=== PATIENT | female | born 1965 | race Caucasian/White ===

== ENCOUNTER 2022-05-13 14:27 | Emergency (ER) | payer BC ==
[2022-05-13 14:44] VITALS: BP 116/66; PULSE 100; O2SAT 95
[2022-05-13] MEDS ORDERED: Sodium Chloride 0.9% 1000 ML 1,000 ML IV STA (15:01)
[2022-05-13] MEDS ORDERED: Sodium Chloride 0.9% 1000 ML 1,000 ML ONE (15:19)
[2022-05-13 15:28] LABS: Absolute Neutrophil Ct (ANC) 5.35 x10^3/uL (1.4-6.9); Basophil (Absolute #) 0.06 x10^3/uL (0-0.4); Eosinophil % 6.9 % (0.00-5.0); Eosinophil (Absolute #) 0.66 x10^3/uL (0-0.5); Hemoglobin 14.2 g/dL (12.0-16.0); Lymphocyte (Absolute #) 2.65 x10^3/uL (1.0-4.6); Lymphocytes % 27.7 % (24.0-44.0); Mean Cell Volume 97.1 fL (78-100); Mean Corpuscular Hemoglobin 31.3 pg (26-32); Mean Corpuscular Hgb Concent. 32.3 g/dL (32-36); Mean Platelet Volume 9.7 fL (7.5-11.0); Monocyte (Absolute #) 0.81 x10^3/uL (0.0-1.3); Monocytes % 8.5 % (0.0-12.0); Neutrophil % 55.8 % (36.0-66.0); Platelet Count 295 x10^3/uL (150-450); Red Blood Count 4.53 x10^6/uL (4.1-5.4); White Blood Count 9.6 x10^3/uL (4.0-10.5)
[2022-05-13 15:29] LABS: Appearance CLEAR (CLEAR); Bilirubin NEGATIVE (NEGATIVE); Glucose NEGATIVE (NEGATIVE); Ketones NEGATIVE (NEGATIVE); Mucus SLIGHT /HPF (NEGATIVE); Ph 5.5 (5-6); Protein,Urine Dip NEGATIVE (Negative); RBC NEGATIVE Ery/ul (0-5); Urobilinogen 0.2 mg/dL (0-1); WBC 0-2 /HPF (0-5)
[2022-05-13 15:30] LABS: Dipstick done @ ? MAIN LAB; Nitrite NEGATIVE (NEGATIVE); Urine Cultured Indicated? NO
[2022-05-13 15:33] LABS: ALBUMIN 5.2 g/dL (3.5-5.0); ALKALINE PHOSPHATASE 67 U/L (38-126); ANION GAP 18.7 MEQ/L (5-15); BLOOD UREA NITROGEN 15 mg/dL (7-17); CHLORIDE 99 mmol/L (98-107); Calcium 10.3 mg/dL (8.4-10.2); Carbon Dioxide 26 mmol/L (22-30); Creatinine 1 0.99 mg/dL (0.52-1.04); EST GLOMERULAR FILTRATION RATE > 60.0 ML/MIN; Glucose 98 mg/dL (74-106); LIPASE 55 U/L (23-300); Potassium 4.7 mmol/L (3.5-5.1); SGOT/AST 38 U/L (14-36); SGPT/ALT 31 U/L (0-35); SODIUM 139 mmol/L (137-145)
--- NOTE | 2022-05-13 16:38 | XRAY ---
Exam: CT of the abdomen and pelvis without IV contrast from 05/13/2022. CTDI: 6.29 mGy Comparison: [None.] Indication: 56-year-old female with history of vomiting and diarrhea/constipation. The patient has a personal history of prior surgery for an umbilical hernia. Technique: Non-IV contrast axial images were obtained through the abdomen and pelvis. No oral contrast was given. Reconstructed coronal and sagittal images were created and reviewed. Findings: The lung bases reveal minimal posterior dependent compression atelectasis within the posterior lung sulci bilaterally. No other findings of concern are seen at the lung bases. Assessment of the solid organs is limited on a non-IV contrast study only. Diffuse fatty infiltration within the liver is seen consistent with hepatic steatosis. Region of interest measurement over the right hepatic lobe measures +28.3 Hounsfield units, whereas the region of interest measurement over the spleen measures +50.2 Hounsfield units. I see no focal hepatic mass or intrahepatic biliary duct distention. The gallbladder is distended and reveals no intraluminal dense calcifications. The spleen is of normal size and reveals no mass. The pancreas and adrenal glands appear unremarkable. The kidneys are of average size and reveal no calculi or hydronephrosis. No obvious ureteral distention or ureterolith is seen. No definite solid renal mass is seen. Atherosclerotic vascular calcification is seen within the abdominal aorta and proximal iliac arteries. I see a mild eccentric focal bulge of the abdominal aorta toward the left on coronal images #73 through #78. However, this only measures a maximum of 2.3 cm in width on coronal image #74 and axial image #41. The abdominal aorta just proximal this measures about 1.7 cm in diameter. Therefore, technically, this does not represent an aneurysm as of yet. Correlate clinically and consider a follow-up CT exam in one year. Blood pressure should be well-controlled. No abnormal retroperitoneal lymphadenopathy is seen. I see no ventral abdominal wall hernia. There is no free intraperitoneal air. There is some fluid-filled small bowel and scattered air-fluid levels seen within nondilated colon which could be due to the patient's diarrheal state. Colonic diverticulosis without diverticulitis is seen within the left hemicolon. No findings of acute appendicitis are seen. The uterus is anteflexed. The ovaries appear grossly unremarkable. The urinary bladder is distended and appears unremarkable. No abnormal pelvic soft tissue mass, pelvic lymphadenopathy, or free intraperitoneal fluid is seen. The skeleton reveals no acute fracture or aggressive bone lesion. Marked degenerative disc disease is seen at L5-S1. Advanced degenerative facet joint arthropathy is seen bilaterally at L3-L4 through L5-S1 bilaterally. Impression: 1. Colonic diverticulosis without evidence of acute diverticulitis is seen within the left hemicolon. 2. I also note fluid within both distal small bowel and colon consistent with a diarrheal state. No mechanical bowel obstruction or appendicitis is seen. 3. Hepatic steatosis. 4. There appears to be a mild left lateral bulge of the infrarenal abdominal aorta, although this bulge only measures a maximum of 2.3 cm in width. See above. Blood pressure should be well-controlled. A follow-up CT of the abdomen in 1 year is recommended for surveillance. 5. No other acute process is seen within the abdomen or pelvis.
--- NOTE | 2022-05-13 17:01 | ERPHSYRPT ---
- History of Present Illness Time Seen by Provider: 05/13/22 14:34 Patient Subjective Stated Complaint: Pt states "I go from being constipated and having horrible burps that smell foul and taste horrible to having watery di arrhea." Triage Nursing Assessment: PT presented alert and oriented X3, skin wpd Pt ambulates with an upright steady gait, able to speak in clear full sentences pt in no apaprent respiratory distress. Physician History: This is a 56 yr old pt. presenting to ED with h/o alternating diarrhoea and constipation ongoing x 1.5 months - Pt. reports that she is first constipated, then takes meds for constipation which results in "bad buring", sometimes vomiting , followed by diarrhoea. - States that last night she was up all night with diarrhea- has initially taken 2 imodium's, followed by 2 more immodium's this am and diarrhea has stopped - states she did not eat anything today in fear of diarrhea. - reports that PCP is aware of s/s, denies outpt. work up or GI referral. - Last colonoscopy 1-2 yrs ago and polyps were removed - Denies fever/abdominal pain/recent antibiotic use/bodyaches/headaches. - States few months ago she had a similar episode. - Denies h/o diverticulitis/UC/crohn's Timing/Duration: week(s) (6) Activities at Onset: none Quality: other (Has no abdominal pain) Abdominal Pain Onset Location: other (Has no abdominal pain) Modifying Factors: Improves With: nothing Associated Symptoms: diarrhea, nausea, vomiting, No chest pain, No heartburn Previous symptoms: same symptoms as today Allergies/Adverse Reactions: UNOBTAINABLE Allergy (Verified 05/13/22 14:44) irritation, vomiting Home Medications: ALPRAZolam 1 MG [Xanax 1 mg] 1 mg PO DAILY 05/13/22 [History] Clopidogrel Bisulfate [Clopidogrel] 75 mg PO DAILY 05/13/22 [History] Gabapentin 800 mg PO DAILY 05/13/22 [History] Simvastatin 40 mg PO DAILY 05/13/22 [History] Spironolactone [Aldactone] 50 mg PO DAILY 05/13/22 [History] Hx Tetanus, Diphtheria Vaccination/Date Given: Yes Hx Influenza Vaccination/Date Given: No Hx Pneumococcal Vaccination/Date Given: No Immunizations Up to Date: Yes Travel Risk - International Travel Have you traveled outside of the country in past 3 weeks: No - Coronavirus Screening Are you exhibiting any of the following symptoms?: No Symptoms: Vomiting/Diarrhea Close contact with a COVID-19 positive Pt in past 14-21 Days: No - Vaccine Status Have you recieved a Covid-19 vaccination: Yes [employer] 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 - Vaccination Dates Date of 2cond Vaccination (if applicable): 2020 - Review of Systems Constitutional: No Fever, No Chills, No Fatigue, No Weakness Eyes: No Discharge, No Eye Pain, No Vision Changes, No Double Vision Ears, Nose, & Throat: No Ear Discharge, No Sinus Drainage, No Mouth Pain, No Painful Swallowing, No Snoring Respiratory: No Cough, No Dyspnea on Exertion ([place]) Cardiac: No Chest Pain, No Palpitations, No Syncope, No Orthopnea Abdominal/Gastrointestinal: Nausea, Vomiting, Diarrhea, Constipation, No Abdominal Pain, No Hematemesis, No Hematochezia, No Melena Genitourinary Symptoms: No Dysuria, No Hematuria, No Urgency Musculoskeletal: No No Symptoms, No Back Pain, No Neck Pain Skin: No Cellulitis, No Rash Neurological: No Dizziness, No Focal Weakness, No Headache Psychological: No Symptoms Endocrine: No Symptoms Hematologic/Lymphatic: No No Symptoms Immunological/Allergic: No No Symptoms All Other Systems: Reviewed and Negative - Past Medical History Pertinent Past Medical History: Yes Other Medical History: high cholesterol. neuropathy - Past Surgical History Past Surgical History: Yes Other Surgical History: back - Social History Smoking Status: Current every day smoker How long have you smoked: years Exposure to second hand smoke: Yes Drug Use: none Patient Lives Alone: No - Nursing Vital Signs Nursing Vital Signs: Initial Vital Signs Temperature 97.7 F 05/13/22 14:37 Pulse Rate 100 H 05/13/22 14:37 Respiratory Rate 20 05/13/22 14:37 Blood Pressure 116/66 05/13/22 14:37 O2 Sat by Pulse Oximetry 95 05/13/22 14:37 Pain Scale Pain Intensity 4 - Physical Exam General Appearance: no apparent distress Eye Exam: PERRL/EOMI, eyes nml inspection Ears, Nose, Throat Exam: normal ENT inspection, TMs normal, pharynx normal, moist mucous membranes Neck Exam: normal inspection, non-tender, full range of motion Respiratory Exam: normal breath sounds, lungs clear, No respiratory distress, No wheezing Cardiovascular Exam: regular rate/rhythm, normal heart sounds, normal peripheral pulses, tachycardia, capillary refill <2 sec Gastrointestinal/Abdomen Exam: soft, normal bowel sounds, No tenderness, No dist ention, No guarding, No pulsatile mass, No organomegaly Pelvic Exam: deferred Rectal Exam: deferred Back Exam: normal inspection, No CVA tenderness Extremity Exam: normal inspection, normal range of motion Neurologic Exam: alert, oriented x 3, cooperative Skin Exam: normal color Lymphatic Exam: No adenopathy SpO2 Interpretation: normal SpO2: 95 O2 Delivery: Room Air Ordered Tests: Medication Summary Discontinued Medications Generic Name Dose Route Start Last Admin Trade Name Freq PRN Reason Stop Dose Admin Sodium Chloride 1,000 mls @ 999 mls/hr 05/13/22 15:01 05/13/22 16:35 Sodium Chloride 0.9% 1000 Ml IV 05/13/22 16:01 Infused .Q1H1M STA Infusion Sodium Chloride Confirm 05/13/22 15:19 Sodium Chloride 0.9% 1000 Ml Administered 05/13/22 15:20 Dose 1,000 mls @ ud .ROUTE [facility] Lab/Rad Data: Laboratory Result Diagrams 05/13/22 15:00 05/13/22 15:00 Laboratory Results 05/13/22 05/13/22 05/13/22 Range/Units 15:00 15:00 15:00 WBC 9.6 (4.0-10.5) x10^3/uL RBC 4.53 (4.1-5.4) x10^6/uL Hgb 14.2 (12.0-16.0) g/dL Hct 44.0 (35-47) % MCV 97.1 (78-100) fL MCH 31.3 (26-32) pg MCHC 32.3 (32-36) g/dL RDW 13.0 (11.5-14.0) % Plt Count 295 (150-450) x10^3/uL MPV 9.7 (7.5-11.0) fL Gran % 55.8 (36.0-66.0) % Immature Gran % (Auto) 0.5 H (0.00-0.4) % Nucleat RBC Rel Count 0.0 (0.00-0.1) % Eos # (Auto) 0.66 H (0-0.5) x10^3/uL Immature Gran # (Auto) 0.05 H (0.00-0.03) x10^3u/L Absolute Lymphs (auto) 2.65 (1.0-4.6) x10^3/uL Absolute Monos (auto) 0.81 (0.0-1.3) x10^3/uL Absolute Nucleated RBC 0.00 (0.00-0.01) x10^3u/L Lymphocytes % 27.7 (24.0-44.0) % Monocytes % 8.5 (0.0-12.0) % Eosinophils % 6.9 H (0.00-5.0) % Basophils % 0.6 (0.0-0.4) % Absolute Granulocytes 5.35 (1.4-6.9) x10^3/uL Basophils # 0.06 (0-0.4) x10^3/uL Sodium 139 (137-145) mmol/L Potassium 4.7 (3.5-5.1) mmol/L Chloride 99 (98-107) mmol/L Carbon Dioxide 26 (22-30) mmol/L Anion Gap 18.7 H (5-15) MEQ/L BUN 15 (7-17) mg/dL Creatinine 0.99 (0.52-1.04) mg/dL Estimated GFR > 60.0 ML/MIN Glucose 98 (74-106) mg/dL Calcium 10.3 H (8.4-10.2) mg/dL Total Bilirubin 0.40 (0.2-1.3) mg/dL AST 38 H (14-36) U/L ALT 31 (0-35) U/L Alkaline Phosphatase 67 (38-126) U/L Serum Total Protein 9.0 H (6.3-8.2) g/dL Albumin 5.2 H (3.5-5.0) g/dL Lipase 55 (23-300) U/L Urinalys Dipstick Clnc MAIN LAB Urine Color YELLOW (YELLOW) Urine Appearance CLEAR (CLEAR) Urine pH 5.5 (5-6) Ur Specific Coleman 1.020 (1.005-1.025) POC Urine Protein Conf NEGATIVE (Negative) Urine Ketones NEGATIVE (NEGATIVE) Urine Nitrite NEGATIVE (NEGATIVE) Urine Bilirubin NEGATIVE (NEGATIVE) Urine Urobilinogen 0.2 (0-1) mg/dL Urine Leukocytes NEGATIVE (NEGATIVE) Urine WBC (Auto) 0-2 (0-5) /HPF Urine RBC (Auto) NONE (0-2) /HPF U Epithel Cells (Auto) NONE (FEW) /HPF Urine Bacteria (Auto) NONE (NEGATIVE) /HPF Urine RBC NEGATIVE (0-5) Jeremiah/ul Urine Mucus (Auto) SLIGHT (NEGATIVE) /HPF Ur Culture Indicated? NO Urine Glucose NEGATIVE (NEGATIVE) mg/dL - Progress Progress: improved, re-examined (pt. resting, tachucardia resolved, has no complaints) Progress Note: 1) Alternating diarrhea and constipation x 1.5 mo - pt. has features of IBS - No h/o being seen by GI or prior work up - Initially tachycardic- Given IVF resulting in resolution of tachycardia. -Labs reviewed in detail with pt- CBC, CMP,UA,lipase- WNL, mild dehydration - Imaging shows no evidence of diverticulitis/obstruction. Normal appendix. - Pt. improved after IVF - Discussed need to see GI as outpt. for further workup - advised f/u with pcp in am - - Pt. advised to return for any new or worsening s/s or any concern at all. - Has no further questions. - Will be discharged home on zofran given nausea - Departure Clinical Impression: Alternating constipation and diarrhea Clinical Impression: (Ruled Out): Vomiting and diarrhea Condition: Good Critical Care Time: No Referrals: JEFFREY ROSADO [Primary Care Provider] - Follow up/PCP as directed Additional Instructions: Discharge/Care Plan MARGAUXPILAR CERNA was seen on 05/13/22 in the Emergency Room. The patient was counseled regarding Diagnosis,Lab results, Imaging studies, need for follow up and when to return to the Emergency Room. Prescriptions given: Discharge Note I have spoken with the patient and/or caregivers. I have explained the patient's condition, diagnosis and treatment plan based on the information available to me at this time. I have answered the patient's and/or caregiver's questions and addressed any concerns. The patient and/or caregivers have as good understanding of the patient's diagnosis, condition and treatment plan as can be expected at this point. The vital signs have been stable. The patient's condition is stable and appropriate for discharge from the emergency department. The patient will pursue further outpatient evaluation with the primary care physician or other designated or consulting physician as outlined in the discharge instructions. The patient and/or caregivers are agreeable to this plan of care and follow-up instructions have been explained in detail. The patient and/or caregivers have received these instruction. The patient/and or caregivers are aware that any significant change in condition or worsening of symptoms should prompt an immediate return to this or the closest emergency department or call 911. Prescriptions: Ondansetron ODT 4 MG [Zofran Odt 4 mg] 4 mg PO Q6H PRN PRN #10 tablet PRN Reason: Vomiting
== END 2022-05-13 17:19 | disposition home or self-care (01) ==
LOC: ED 14:27
DX: R19.4 Change in bowel habit (principal); E78.5 Hyperlipidemia, unspecified; Z72.0 Tobacco use; Z79.02 Long term (current) use of antithrombotics/antiplatelets; Z79.899 Other long term (current) drug therapy
CPT/HCPCS: 36000; 36415; 74176; 80053; 81015; 83690; 85025; 96360; 99284